=== PATIENT | male | born 1990 | race American Indian/Alaskan Native ===

== ENCOUNTER 2016-08-08 11:17 | Outpatient (CLI) | payer MEDICAID ==
--- NOTE | 2016-08-08 13:30 | Ultrasound Report ---
Bilateral digital diagnostic mammogram with CAD and bilateral whole breast ultrasound including all 4 quadrants and subareolar regions. History: Bilateral mastitis in a 26-year-old male. Findings: The breasts have a normal appearance for a male. No masses or abnormal calcifications are seen. Bilateral breast ultrasound demonstrates no significant findings. Impression: Normal studies. BI-RADS code: 1. Recommendation: Clinical followup
== END 2016-08-08 11:18 | disposition home or self-care (01) ==
LOC: MAMMO 11:17
PROVIDERS: ATTEND Nurse Practitioner Family
DX: N61.0 Mastitis without abscess (principal); R50.9 Fever, unspecified
CPT/HCPCS: 76641; G0204; 77066